=== PATIENT | female | born 1965 | race Native Hawaiian/Other Pacific Islander ===

== ENCOUNTER 2019-08-20 16:44 | Outpatient (CLI) | payer BC ==
[2019-08-20 17:03] LABS: PLATELET COUNT 281 K/uL (152-353)
[2019-08-20 17:11] LABS: POTASSIUM 4.5 mmol/L (3.6-5.2)
== END 2019-08-20 19:38 | disposition home or self-care (01) ==
LOC: LABW 16:44
PROVIDERS: Obstetrics & Gynecology
DX: L40.50 Arthropathic psoriasis, unspecified (principal); Z79.899 Other long term (current) drug therapy
CPT/HCPCS: 36415; 80053; 85027; 85651; 86140